=== PATIENT | male | born 1955 | race Hispanic/Latino ===

== ENCOUNTER → 2022-02-16 | Outpatient (CLI) | payer BC | END | disposition home or self-care (01) | LOC: SHCH 08:30 | PROVIDERS: ATTEND Internal Medicine Cardiovascular Disease | DX: I11.9 Hypertensive heart disease without heart failure (principal); I25.10 Atherosclerotic heart disease of native coronary artery without angina pectoris; E78.5 Hyperlipidemia, unspecified; Z95.1 Presence of aortocoronary bypass graft | CPT/HCPCS: 93306 ==

== ENCOUNTER → 2024-05-23 | Outpatient (CLI) | payer BC, MEDICARE ==
--- NOTE | 2024-05-28 08:11 | HMCSR ---
APPROVED REPORT EXAM: Two-dimensional and M-mode echocardiogram with Doppler and color Doppler. 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 Surgery/Intervention CABG: Date: 2021 RISK FACTORS Hypertension Hyperlipidemia 2D Dimensions RVDd3.8 cmLVEF(%)45.0 (>50%)LVED Vol(simp.)160.0 mL IVSd0.8 (0.7-1.1cm)FS(%)23 %LVES Vol(simp.)73.0 mL LVDd6.4 (3.8-5.6cm)Ao Root(2D)3.6 (2.0-3.7cm)LVEF(%, simp.)55 % PWd1.0 (0.7-1.1cm)LVOT diam2.2 (1.8-2.4cm)LA ESV INDEX (BP)37.55 mL/m2 LVDs5.0 (2.5-4.0cm)IVC diam1.6 cm Aortic Valve AoV Vmax1.6 m/Rodolfo Peak GR10.1 mmHgLVOT Vmax1.0 m/s AoV VTI0.4 mAo Mean GR6.0 mmHgLVOT VTI0.22 m YIMI (VMAX)2.3 cm2AVA (VTI) 2.3 cm2 Mitral Valve MV E Vmax82.4 cm/sDECEL Fxvz718 ms MV A Vmax98.5 cm/sP 1/2 T57 ms E/A ratio0.8MVA (PHT)3.9 cm2 MR Max PG91 mmHg TDI E/E' Vibgvh07.2E/E' Tcbdgyt21.6 Pulmonary Valve PV Vmax1.1 m/sPV VTI0.23 mPV Mean GR3 mmHg PV Peak GR5.1 mmHg Tricuspid Valve TR Vmax2.7 m/sRAP (EST) 3 duSiDHXK15.9 mmHg TR Peak GR28.9 mmHg Left Ventricle The left ventricle is moderately dilated. There is normal LV segmental wall motion. There is normal l eft ventricular wall thickness. LVEF is 50-55%. Grade 2 diastolic dysfunction. Right Ventricle The right ventricle is normal size. The right ventricular systolic function is normal. Atria The left atrium is mildly dilated. The right atrium is dilated. Aortic Valve Aortic valve is trileaflet. Aortic valve leaflets are sclerotic but open well. Trace aortic regurgita tion. There is no aortic valvular stenosis. Mitral Valve Mitral valve leaflets are sclerotic but open well. Mitral regurgitation is trace to mild. There is no mitral valve stenosis. Tricuspid Valve The tricuspid valve leaflets appear normal. There is trace tricuspid regurgitation. Right ventricular systolic pressure is estimated at 30-40 mmHg. Pulmonic Valve The pulmonic valve leaflets are thin and pliable; valve motion is normal. There is trace pulmonic enrrique vular regurgitation. Great Vessels The aortic root is normal in size. The IVC is normal in size and collapses >50% with inspiration. Pericardium Trace pericardial effusion. Conclusion LVEF is 50-55%. Grade 2 diastolic dysfunction. There is normal LV segmental wall motion. The left atrium is mildly dilated. Mitral regurgitation is trace to mild. Trace pericardial effusion. The aortic root is normal in size.
== END | disposition home or self-care (01) ==
LOC: SHCH 08:20
PROVIDERS: ATTEND Internal Medicine Cardiovascular Disease
DX: I08.0 Rheumatic disorders of both mitral and aortic valves (principal); I11.9 Hypertensive heart disease without heart failure; I49.3 Ventricular premature depolarization; I25.5 Ischemic cardiomyopathy; Z95.1 Presence of aortocoronary bypass graft; E78.5 Hyperlipidemia, unspecified
CPT/HCPCS: 93306